=== PATIENT | female | born 1995 | race Caucasian/White ===

== ENCOUNTER 2017-05-08 13:11 | Day surgery (SDC) | payer OTHER, SELFPAY ==
[2017-05-08 14:30] VITALS: BP 112/59; TEMP 98.1
[2017-05-08 14:31] VITALS: BMI 21.5
--- NOTE | 2017-05-08 15:51 | ULT ---
OB ULTRASOUND 05/08/17 INDICATION: No care. History of reported abnormality on a prior ultrasound not available for comparison. FINDINGS: There is a live intrauterine gestation demonstrated with cardiac activity documented at 137 tato ts per minute. The fetus is in a vertex lie with the placenta located anteriorly. Amniotic fluid inde x is calculated at 10.5 cm. Evaluation of anatomy reveals intestinal contents beyond the expected confines of the abdominal wall without a discernible encapsulating sac, compatible with gastroschisis. The imaged cranial cont ents and spine are grossly unremarkable. The urinary bladder demonstrates a normal appearance. Three vessel umbilical cord is demonstrated, and is adjacent to the site of gastroschisis. The estim ated weight is 1336 grams. Estimated date of delivery by ultrasound is 29 weeks, 5 days placing estimated date of delivery by ultrasound at 07/19/17. On the basis of sonographic imaging, biparietal diameter corresponds to 30 weeks, 4 days. Head circumference 30 weeks, 2 days. Abdominal circumferen ce 28 weeks, 3 days and femoral length 29 weeks, 3 days. IMPRESSION: 1. Live intrauterine gestation. 2. Evidence of gastroschisis. Recommend high risk maternal medicine consultation. POS: [facility]
[2017-05-08 16:05] LABS: Hemoglobin 9.9 g/dL (12.0-16.0); Mean Corpuscular HGB CONC 33.3 g/dL (32.0-36.0); Mean Corpuscular Hemoglobin 27.9 pg (27.0-31.0); Mean Corpuscular Volume 83.6 fl (81.0-99.0); Platelet Count 308 thou/uL (130-400); RBC Distribution Width 13.2 % (11.5-14.5); Red Blood Cell (RBC) Count 3.54 mill/uL (4.20-5.40); White Blood Cell (WBC) Count 12.5 thou/uL (4.8-10.8)
[2017-05-08 16:44] LABS: HBSAg Index 0.76 S/CO (0-0.99); HIV (1/2) Antibody/Antigen Non-Reactive (NonReactive); HIV 1/2 INDEX 0.06 S/CO (<1.00); Hep B Surf Ag Non-Reactive S/CO (NonReactive)
--- NOTE | 2017-05-08 16:44 | PDOC.APC ---
Antepartum Consult NUNU MENA is a 21 year old female at [31 6/7] gestational weeks. is complicated by limited care and presumed gastroschisis. She presented to the [facility] for initial appointment at 26 weeks, found to be closer to 19 weeks on US. Initial clinic US concerning for gastroschisis, referred to [facility]. She did not follow up with [facility] as she lost her Medicaid coverage. She presented to L&D today with abdominal pain, found to not be in labor. I was asked by Dr. Guadalupe to discuss the diagnosis of gastroschisis with the mother. I introduced myself to the patient and the father of the baby. Mother explained to me that she knew her baby had its intestines outside the body and she planned on going to [place] for delivery. As simply as possible, I explained that gastroschisis is a defect in the abdominal wall which allows abdominal contents to extrude into the amniotic cavity. Depending on the size of the defect would determine whether the patient would have surgery right away or if a silo would be placed with serial reductions. I discussed the likely prolonged NICU stay which would last until the patient was able to take all feedings by mouth and gain weight. We discussed the need for likely IV nutrition. I explained that patients who have gastroschisis can be at risk for ischemic bowel, infection and fluid losses. They can have long-term problems with adhesions. I reiterated multiple times that she needed to be seen by a team as soon as possible to establish a plan of care and get a comprehensive evaluation of the well being. I provided her with the CDC handout on gastroschisis. I gave the [facility] team the contact information for the [facility] which has a 24 physician contact and will review initial imaging free of charge. Mother had no questions, was fidgety throughout our discussion and stated multiple times that she was ready to go home and be discharged. She was seen by the [facility] social service assistant while she was in L&D. Father had a few questions regarding the [facility] which I could not answer but I encouraged them to call today for further information. I relayed that I was readily available to answer any other questions they had.
[2017-05-08 16:45] LABS: Syphilis Antibody Nonreactive (Nonreactive); Syphilis Antibody Index 0.05 S/CO (<1.00 Non-Reactive)
--- NOTE | 2017-05-08 17:07 | PDOC.EVN ---
Event Note - Event Note Event Note: Discussed findings with patient. Informed patient that UA pending and would like for her to wait. Stated her grandmother has to go home and take medication. urine appears grossly normal. will d/c at this time and send antibiotic to pharmacy if needed. Final diagnosis. 1. TIUP at 31 weeks 2. U/S evidence of gastroschisis 3. anemia of - rx for iron and colace sent to [facility] in [place]. recommendations: iron supplementation. CM spoke with patient about how to get medicaid card tomorrow. Patient stated she would get medicaid card tomorrow and come to [facility] clinic for follow up and referral to [facility]. Patient understands she needs to deliver baby at hospital that can treat gastroschisis. <Jaciel Del Toro W - Last Filed: 05/08/17 17:03> Attending Addendum - Attending Addendum I personally evaluated the patient and discussed the management with Dr. Del Toro. I agree with the History, Examination, Assessment and Plan documented above with any addition or exceptions noted below. <Zohaib Guadalupe - Last Filed: 05/09/17 05:15>
[2017-05-08 17:15] LABS: Bilirubin Negative (Negative); Blood, Urine Negative (Negative); Clarity CLEAR (Clear); Glucose, Urine (Dipstick) Negative (Negative); Leukocyte Negative (Negative); Nitrite Negative (Negative); Protein, Urine (Dipstick) Negative (Neg-Trace); Specific Gravity, Urine 1.008 (1.002-1.036); Urobilinogen 0.2 mg/dL (0.2-1.0); pH, Urine 7.5 (5.0-9.0)
[2017-05-08 17:26] LABS: Amphetamine Not Detected (NotDetected); Barbiturates Screen Not Detected (NotDetected); Benzodiazepine Screen Not Detected (NotDetected); Cocaine Metabolite Screen Not Detected (NotDetected); Medtox Control Line Valid? VALID (VALID); Medtox Reader # READER 1; Methadone Not Detected (NotDetected); Methamphetamine Not Detected (NotDetected); Opiate Screen Not Detected (NotDetected); Oxycodone Screen Not Detected (NotDetected); Phencyclidine (PCP) Not Detected (NotDetected); THC/Cannabinoid Screen Not Detected (NotDetected); Tricyclic Screen Not Detected (NotDetected)
[2017-05-09 22:33] LABS: Chlamydia by PCR Not Detected (NotDetected); GC by PCR Not Detected (NotDetected)
== END 2017-05-08 17:05 | disposition home or self-care (01) ==
LOC: L&D/OP 13:11
PROVIDERS: ATTEND Obstetrics & Gynecology
DX: O99.89 Other specified diseases and conditions complicating pregnancy, childbirth and the puerperium (principal); R10.30 Lower abdominal pain, unspecified; O99.013 Anemia complicating pregnancy, third trimester; O99.333 Smoking (tobacco) complicating pregnancy, third trimester; F17.200 Nicotine dependence, unspecified, uncomplicated; Z3A.31 31 weeks gestation of pregnancy; Z79.899 Other long term (current) drug therapy
CPT/HCPCS: 36415; 76805; 80306; 81003; 85027; 86762; 86780; 86850; 86900; 86901; 87081; 87086; 87340; 87389; 87491; 87591; 99285

== ENCOUNTER 2017-05-21 09:47 | Day surgery (SDC) | payer OTHER ==
[2017-05-21 10:24] VITALS: BMI 27.8
--- NOTE | 2017-05-21 11:47 | PDOC.LDHP ---
Labor and Delivery H&P Chief complaint: other (Dark bleeding, Spotting) HPI: 21 yo @ 33.5 weeks dated by 19.6 wk sono comes in w/ cc of dark bleeding. OLIVIA is 07/04/17. Pt reports having light bleeding yesterday starting around noon just after sexual intercourse. Says the bleeding was bright yesterday and spotting. Not like periods. Reports this morning having spotting but saying that blood was dark. Denies any loss of fluid, vaginal discharge. Denies any itching or irritation. Denies contractions. Says baby is moving normal. Denies any urinary sx's, increased urinary frequency or pain with urination. Denies any pain with the bleeding. No other concerns or problems at this time. Current gestational age (weeks): 33 (5 days) Due date: 07/04/17 Dating criteria: second trimester ultrasound Grav: 3 Para: 1 OB History Details: Previous Miscarriage. 02/13/17 U/S in current noted Gastroschisis. 05/08/17 U/S showed weight less than 1%. Amphetamine and Cannabinoid positive on initial OB labs on 02/13/17. UDS on 05/08 here at [facility] was negative for all illicit drugs. Current complications: other (Gastroschisis) Abnormal US findings: Yes (Gastroschisis, Weight below 1%) Past Medical History: Tobacco use Current medications: pre-vinh vitamins Social history: tobacco use (Cigarrettes ocassionaly) - Physical Exam Vital signs reviewed and normal: yes General: NAD Heart: RRR Lungs: CTAB Abdomen: NTTP Extremeties: no edema FHT: category 1 [place] contractions every: none - OB Labs Blood type: O RH: positive Antibody Screen: negative HIV: negative RPR: negative HEPSAg: negative GBS: negative (05/08/17 test) Urine drug screen: negative (05/08/17 UDS) - Assessment 1)Postcoital Bleeding 2)Decreased Growth 3) w/ Gastroschisis noted on previous U/S 4) Hx of drug abuse -amphetamine and cannibinoid positive on outside UDS - Plan Plan: other -: -Bleeding likely related to intercourse yesterday. Speculum exam performed. Dry old blood noted on cervix. No sign of irritation or acute trauma noted. No lacerations noted. -Checking VP3, UA, and urine culture to check for any sign of infection that could be causing irritation and increasing bleeding -Checking BPP to ensure baby doing well. Category 1 strip on monitoring. FHR 135. No contractions noted -Pt has history of drug abuse on initial UDS at outside OB visit. Will recheck UDS at this time. 05/08/17 UDS was negative Getting growth and doppler to assess baby weight. On outside U/S weight noted less than 1st percentile. <Francisco Earl - Last Filed: 05/21/17 11:56> <Nguyen Gracia - Last Filed: 05/21/17 13:21> Allergies/Adverse Reactions: Allergies Allergy/AdvReac Type Severity Reaction Status Date / Time No Known Allergies Allergy Verified 03/11/15 21:34 Attending Addendum - Attending Addendum I personally evaluated the patient and discussed the management with Dr. Earl and Dr. Sr I agree with the History, Examination, Assessment and Plan documented above with any addition or exceptions noted below. 21 yo female at 33.5 wks by 19.6 wk sono here for evaluation of vaginal spotting. Patient presents for post coital spotting. Denies LOF, discharge, pelvic pain or contractions. +FM. has been complicated by tobacco use, polysubstance use, incomplete care, hx of STI, iron def anemia, gastroschisis, and growth restriction. Workup negative at present. Appears to be related to cervicitis. No contractions. NST reactive. BPP 11/28. UA and VP3 negative. Gc/CT along with ucx pending. Pos UDS today with marijuana and meth. Patient reports use of marijuana but denies meth use. Repeat growth stable at 1st percentile per Had[place]. UA dopplers elevated. Called [facility]. Has appointment on 05/22/17 at 0900. Education provided. Driving directions provided. New phone number obtained ---> [phone], Precautions discussed at length. Explained hospital team not adequately equipt for delivery. Discussed patient will require specialist care. Patient and FOB expressed understanding today of situation. Okay for d/c to home. Will call in AM to make sure patient on way to appointment. ABrayMD <Nguyen Garcia - Last Filed: 05/21/17 13:21>
[2017-05-21 11:56] LABS: Bilirubin Negative (Negative); Blood, Urine Large (Negative); Clarity CLOUDY (Clear); Glucose, Urine (Dipstick) Negative (Negative); Leukocyte Negative (Negative); Nitrite Negative (Negative); Protein, Urine (Dipstick) Negative (Neg-Trace); Specific Gravity, Urine 1.014 (1.002-1.036)
[2017-05-21 11:59] LABS: Bacteria/HPF 2+ HPF (None Seen); WBC/HPF 0-3 HPF (0-3)
[2017-05-21 12:08] LABS: Yeast-AUWi Flag 88.4 (0-25.0)
[2017-05-21 12:18] LABS: Hyaline Casts/LPF 0-3 HYALINE CAST LPF (0-3 Hyaline); Other Casts/LPF None Seen LPF (0-3 Hyaline); Yeast-All Forms None Seen HPF (None Seen)
[2017-05-21 12:20] LABS: Amphetamine Not Detected (NotDetected); Barbiturates Screen Not Detected (NotDetected); Benzodiazepine Screen Not Detected (NotDetected); Cocaine Metabolite Screen Not Detected (NotDetected); Medtox Control Line Valid? VALID (VALID); Medtox Reader # READER 1; Methadone Not Detected (NotDetected); Methamphetamine Detected (NotDetected); Opiate Screen Not Detected (NotDetected); Oxycodone Screen Not Detected (NotDetected); Phencyclidine (PCP) Not Detected (NotDetected); THC/Cannabinoid Screen Detected (NotDetected); Tricyclic Screen Not Detected (NotDetected)
--- NOTE | 2017-05-21 15:00 | ULT ---
OB ULTRASOUND AND NONSTRESS BIOPHYSICAL PROFILE: FINDINGS: Single intrauterine gestation with vertex presentation. There are heart tones with a rate of 1 55 b.p.m. biometry: BPD 8.03 cm, 32 weeks 2 days Head circumference 28.96 cm, 31 weeks 6 days Abdominal circumference 26.55 cm, 30 weeks 5 days Femur length 5.77 cm, 30 weeks 1 day Average age by sonography is 31 weeks 1 day. Estimated weight is 1634 gm +/- 242 gm. Umbilical artery: At the placenta peak systolic velocity is 86.6 cm/s. End-diastolic velocity is 27.3 cm/s. SD ratio is 3.17. In the mid portion of the umbilical artery, the peak systolic velocity is 101.4 cm/s. End- diastolic velocity is 28.5 cm/s. SD ratio is 3.56. At the cord insertion peak systolic velocity is 133.3 cm/s. End-diastolic velocity is 36.5 cm/s. SD ratio is 3.65. Amniotic fluid index is 12.3 cm. Nonstress biophysical profile: tone: 2. breathin. movement: 2. Amniotic fluid: 2. Total Score: 8 out of 8. Anterior placenta is noted. IMPRESSION: 1. Non-stress biophysical profile with total score of 8 out of 8. 2. Umbilical artery SD ratio is as detailed above. 3. Single intrauterine gestation with heart tones. POS: [facility]
[2017-05-21] MEDS ORDERED: FLU VACC QS2017-18 36 mo. & older 0.5 ML SYRINGE IM ONE (21:00)
[2017-05-22 22:57] LABS: Chlamydia by PCR Not Detected (NotDetected); GC by PCR Not Detected (NotDetected)
== END 2017-05-21 13:11 | disposition home or self-care (01) ==
LOC: L&D/OP 09:47
PROVIDERS: ATTEND Student in an Organized Health Care Education/Training Program
DX: O26.853 Spotting complicating pregnancy, third trimester (principal); O35.8XX0 Maternal care for other (suspected) fetal abnormality and damage, not applicable or unspecified; O99.333 Smoking (tobacco) complicating pregnancy, third trimester; F17.210 Nicotine dependence, cigarettes, uncomplicated; Z3A.33 33 weeks gestation of pregnancy; Z79.899 Other long term (current) drug therapy
CPT/HCPCS: 76805; 76819; 80306; 81003; 81015; 87086; 87480; 87491; 87510; 87591; 87660

== ENCOUNTER 2017-05-23 11:47 | Day surgery (SDC) | payer OTHER ==
[2017-05-23] MEDS ORDERED: Betamet Acet/Betamet Na Ph 30 MG/5 ML VIAL IM SCH (12:15)
--- NOTE | 2017-05-23 12:22 | PDOC.LDHP ---
Labor and Delivery H&P Chief complaint: other (Here to be triaged to MFM at [facility] ) Current gestational age (weeks): 34 (0 days) Due date: 07/04/17 Dating criteria: second trimester ultrasound Grav: 3 Para: 1 OB History Details: Previous msicarriage 02/13/17 U/S in current noted gastroschisis. 05/08/17 U/S showed weight less than 1%. Amphetamine and Cannabinoid positive on initial OB labs on 02/13/17. UDS on 05/08 negative. UDS on 05/21/17 was positive for meth and cannabinoids. 05/21/17 BPP 8/8. BRYAN 12.3 cm. OB U/S umbilical artery. At placenta peak systolic velocity is 86.6 cm/s. EDV is 27.3 cm/s. SD ratio is 3.17. In the mid portion of the umbilical artery, the peak systolic velocity is 101.4 cm/s. EDV is 28.5 cm/s. SD ratio is 3.56. At the cord insertion peak systolic velocity is 133.3 cm/s. EDV is 36.5cm/s. SD ratio is 3.65 cm/s EFW is 1634gm Current complications: other Abnormal US findings: Yes (Gastroschisis, weight below 1%, SD ratio abnormal) Past Medical History: N/A Current medications: pre-vinh vitamins Previous surgical history: none Social history: tobacco use (cigarrettes occasionaly), drug use (marijuana occasionally, denied meth even though positive previously) - Physical Exam Vital signs reviewed and normal: yes General: NAD Heart: RRR Lungs: CTAB Abdomen: NTTP Extremeties: no edema FHT: category 1, variability present - OB Labs Blood type: O RH: positive Antibody Screen: negative HIV: negative RPR: negative HEPSAg: negative GBS: negative Urine drug screen: positive (Positive for marijuna, meth on 05/21. Initial on was marijuana and amphetamines) Additional Labs: Gonorrhea and Chlamydia negative from test on 05/21/16 - Assessment 1)Decreased Growth 2) w/ gastroschisis noted on u/s 3) Current Drug abuse -marijuana, meth, amphetamines - Plan Plan: admit to L&D -: 21 yo @ 34 weeks by 19.6 week sono is here for triage to higher level care. Pt had growth weight at 1% and increased UA dopplers. Baby was identified to have gastroschisis on 19.6 week U/S. We have been trying to get patient to [facility] specialist ever since we identified the gastroschisis on her initial US. Pt has been noncompliant on visits and never made an appointment with [facility] doctors. She came in 2 days ago and we found the findings on BPP/NST and US as noted above. We tried setting up a MFM appointment for Sunday. We called the patient and she ended up not going. Pt also has a diagnosis of Drug abuse. 2 days ago her UDS was positive for marijuana and methamphetamine. With pt infants low weight, increased UA dopplers and multiple positive UDS patient desperately needs to be seen and assessed by a [facility] specialist. We have had conversation with Sarah Brown MD and she has agreed to see and assess this patient at [facility]. -We are checking 1 hr gtt. We will also give her dose of betamethasone as it is anticipated patient will be delivering soon as baby is at risk with all its findings. -We will check her GBS, previous outside GBS was negative. FHT reactive. FHR 145. Multiple accelerations seen on heart tones. No ctx seen on monitor. Cat 1 strip. <Francisco Earl - Last Filed: 05/23/17 12:34> <Nguyen Garcia - Last Filed: 05/23/17 13:20> Allergies/Adverse Reactions: Allergies Allergy/AdvReac Type Severity Reaction Status Date / Time No Known Allergies Allergy Verified 03/11/15 21:34 Attending Addendum - Attending Addendum I personally evaluated the patient and discussed the management with Dr. Earl and Dr. Sr I agree with the History, Examination, Assessment and Plan documented above with any addition or exceptions noted below. 21 yo female at 34.0 wks by 19.6 wk sono here for medical transfer due to need for anticipated delivery. 1. sIUP: IOB labs reviewed. Gc/CT negative. NILM 02/13/17. Anatomy significant for gastroschisis. 1 hour gtt done today. Results pending at time of documentation. Flu given. No Tdap. GBS negative on 05/08/17. 2. Gastroschisis: Transfering to higher level of care for delivery. 3. Severe FGR: 1st percentile per Haddlock. EFW = 1634g on 05/21/17. S/D ratio = 3.56. Discussed case on Sunday with group at outside facility. Did not warrant imediate transfer. F/U OV scheduled for following morning. Patient did not make OV. Was seen in our office today. Case discussed with providers in [place]. Care accepted. BMZ 12 mg IM on 05/23/17. BPP 8/8 on 05/21/17. NST reactive today and on 05/21/17. 4. Polysubstance abuse: Marijuana, meth, amphetamines, tobacco use during . Marijuana positive today on UDS in clinic. Marijuana and meth positive on 05/21/17. 5. Iron def anemia: On iron supplementation. 6. Post coital bleeding: On 05/21/17. Infectious workup negative. Cervicitis on exam. 7. Incomplete/Poor care: Has only made 2 OVs. 8. Bipolar disorder: Not on medication. Has been in denial of complications. Has little understanding and concern for issues. Left office during visit today due to stress of news and need for transfer. Psych at office visit completed evaluation. Discussed coping mechanisms with patient. Psych ruled out significant self harm, SI, and HI today. Dispo: Will transfer to [place]. Martha <Nguyen Garcia - Last Filed: 05/23/17 13:20>
[2017-05-23 13:25] LABS: Glucose 74 mg/dL (70-105)
[2017-05-23 13:48] LABS: #Basophils 0.1 thou/uL (0.0-0.2); #Eosinphils 0.1 thou/uL (0.0-0.7); #Lymphocytes 2.9 thou/uL (1.20-3.40); #Monocytes 1.2 thou/uL (0.11-0.59); #Neutrophils 6.2 thou/uL (1.40-6.50); %Basophils 0.7 % (0.0-1.0); %Eosinophils 1.4 % (0.0-10.0); %Lymphocytes 27.4 % (21.0-51.0); %Monocytes 11.3 % (0.0-10.0); %Neutrophils 59.3 % (42.0-75.0); Hemoglobin 10.1 g/dL (12.0-16.0); Mean Corpuscular HGB CONC 32.3 g/dL (32.0-36.0); Mean Corpuscular Hemoglobin 26.9 pg (27.0-31.0); Mean Corpuscular Volume 83.3 fl (81.0-99.0); Platelet Count 357 thou/uL (130-400); RBC Distribution Width 13.7 % (11.5-14.5); Red Blood Cell (RBC) Count 3.74 mill/uL (4.20-5.40); White Blood Cell (WBC) Count 10.4 thou/uL (4.8-10.8)
[2017-05-23 13:54] LABS: ALT (SGPT) 11 U/L (8-55); AST (SGOT) 29 U/L (5-34); Albumin 3.4 g/dL (3.5-5.0); Alkaline Phosphatase 191 U/L (40-150); Anion Gap 16 mmol/L (10-20); BUN (Urea Nitrogen) 4 mg/dL (7.0-18.7); Bilirubin, Total 0.2 mg/dL (0.2-1.2); Calc. Creatinine Clearance 0 mL/min (70-130); Calcium 8.2 mg/dL (7.8-10.44); Carbon Dioxide 18 mmol/L (22-29); Chloride 105 mmol/L (98-107); Estimated GFR-MDRD Greater than 90; Globulin 3.7 g/dL (2.4-3.5); Glucose 73 mg/dL (70-105); Potassium 4.8 mmol/L (3.5-5.1); Protein, Total 7.1 g/dL (6.0-8.3); Sodium 134 mmol/L (136-145)
== END 2017-05-23 14:53 | disposition short-term general hospital (02) ==
LOC: L&D/OP 11:47
PROVIDERS: ATTEND Student in an Organized Health Care Education/Training Program
DX: O36.5930 Maternal care for other known or suspected poor fetal growth, third trimester, not applicable or unspecified (principal); O35.8XX0 Maternal care for other (suspected) fetal abnormality and damage, not applicable or unspecified; O99.323 Drug use complicating pregnancy, third trimester; F12.10 Cannabis abuse, uncomplicated; F15.10 Other stimulant abuse, uncomplicated; O99.333 Smoking (tobacco) complicating pregnancy, third trimester; F17.210 Nicotine dependence, cigarettes, uncomplicated; Z79.899 Other long term (current) drug therapy; Z3A.34 34 weeks gestation of pregnancy; Z87.59 Personal history of other complications of pregnancy, childbirth and the puerperium
CPT/HCPCS: 82947; 85025; 96372; 99283; J0702

== ENCOUNTER 2018-10-19 14:05 | Emergency (ER) | payer SELFPAY ==
--- NOTE | 2018-10-19 15:23 | ULT ---
GALLBLADDER ULTRASOUND: Date: 10/19/18 HISTORY: Right upper quadrant pain. COMPARISON: None. TECHNIQUE: Utilizing a multihertz transducer, sonographic imaging of the right upper quadrant was performed in t he longitudinal and transverse plane. FINDINGS: Limited evaluation due to artifact. Pancreas is obscured. Suboptimal evaluation of the hepatic parenchyma. The possibility of hepatic masses could easily be ob scured. No definite sonographic evidence of cholelithiasis, gallbladder wall thickening, or pericholecystic f luid. Negative Harris's sign is reported. Common bile duct diameter is 0.2 cm. Right kidney has a normal cortical echotexture. No hydronephrosis. Right kidney measures 5.7 x 4.8 x 10.5 cm. IMPRESSION: 1. Limited evaluation. No definite sonographic evidence of cholelithiasis or cholecystitis. 2. Suboptimal evaluation of the liver. POS: [facility]
== END 2018-10-19 17:50 | disposition home or self-care (01) ==
LOC: ERS 14:05
DX: O99.89 Other specified diseases and conditions complicating pregnancy, childbirth and the puerperium (principal); R10.11 Right upper quadrant pain; O99.341 Other mental disorders complicating pregnancy, first trimester; F31.9 Bipolar disorder, unspecified; O99.331 Smoking (tobacco) complicating pregnancy, first trimester; F17.210 Nicotine dependence, cigarettes, uncomplicated
CPT/HCPCS: 76705

== ENCOUNTER 2019-05-13 17:35 | Inpatient (IN) | payer OTHER ==
[~2019-05-13 17:35] MED LIST: Bupivacaine/Epinephrine 0.25% 30 ML VIAL ONE
[2019-05-13 18:04] VITALS: BMI 28.1
[2019-05-13] MEDS ORDERED: Zolpidem Tartrate 5 MG TAB PO PRN (19:59)
[2019-05-13] MEDS ORDERED: Ibuprofen 800 MG TAB PO PRN (19:59)
[2019-05-13] MEDS ORDERED: Promethazine HCl 25 MG/ML VIAL IM PRN (19:59)
[2019-05-13] MEDS ORDERED: Lidocaine 1% (PF) 30 ML VIAL SC PRN (19:59)
[2019-05-13] MEDS ORDERED: hydrALAZINE 20 MG/ML VIAL SLOW IVP PRN (19:59)
[2019-05-13] MEDS ORDERED: Ondansetron PF 4 MG/2 ML Vial IVP PRN (19:59)
[2019-05-13] MEDS ORDERED: HYDROcodone/Acetaminophen 5/325 mg Tablet PO PRN ×2 (19:59)
[2019-05-13 20:23] LABS: Hemoglobin 10.5 g/dL (12.0-16.0); Mean Corpuscular HGB CONC 33.3 g/dL (32.0-36.0); Mean Corpuscular Hemoglobin 27.3 pg (27.0-31.0); Mean Corpuscular Volume 82.2 fL (78.0-98.0); Mean Platelet Volume 8.1 fL (7.4-10.4); Platelet Count 296 thou/uL (130-400); RBC Distribution Width 12.1 % (11.5-14.5); Red Blood Cell (RBC) Count 3.84 mill/uL (4.20-5.40); White Blood Cell (WBC) Count 10.3 thou/uL (4.8-10.8)
[2019-05-13] MEDS: NS w/ Oxytocin 10 units 500 ML IV SCH (21:00)
[2019-05-13] MEDS ORDERED: Misoprostol 100 MCG TAB VAG SCH (21:00)
[2019-05-13] MEDS ORDERED: Lactated Ringer's 1,000 ML IV SCH (21:00)
[2019-05-13 21:02] LABS: Syphilis Antibody Nonreactive (Nonreactive); Syphilis Antibody Index 0.05 S/CO (<1.00 Non-Reactive)
[2019-05-13] MEDS: Lactated Ringer's 1,000 ML IV SCH (22:55)
[2019-05-13 23:01] LABS: HBSAg Index 0.17 S/CO (0-0.99); Hep B Surf Ag Non-Reactive S/CO (NonReactive)
[2019-05-14] MEDS: Butorphanol Tartrate 1 MG/ML VIAL SLOW IVP PRN ×2 (00:05→02:26)
[2019-05-14] MEDS: Misoprostol 100 MCG TAB VAG SCH ×4 (00:11→12:13)
[2019-05-14] MEDS ORDERED: Fentanyl 4 mcg/Bup 0.1% Cadd 100 ML ONE (03:35)
[2019-05-14] MEDS ORDERED: Ondansetron PF 4 MG/2 ML Vial IVP PRN ×2 (05:07→11:59)
[2019-05-14] MEDS ORDERED: Naloxone HCl 0.4 mg/ml Vial IVP PRN ×2 (05:07)
[2019-05-14] MEDS ORDERED: diphenhydrAMINE 50 MG/ML VIAL IVP PRN (05:07)
[2019-05-14] MEDS ORDERED: Acetaminophen 325 MG TAB PO PRN (05:07)
[2019-05-14] MEDS ORDERED: ePHEDrine/0.9% NaCl/PF SYRINGE 50 mg/10 ml SLOW IVP PRN (05:07)
[2019-05-14] MEDS ORDERED: Promethazine HCl 25 MG/ML VIAL IM PRN ×2 (05:07→11:59)
[2019-05-14] MEDS ORDERED: Lactated Ringer's 500 ML IV PRN (05:07)
[2019-05-14] MEDS ORDERED: Fentanyl 4 mcg/Bupivacaine 0.1% Cassette 100 ML EPIDURAL SCH (05:15)
[2019-05-14] MEDS ORDERED: Communication Order-Pharmacy FS SCH (05:15)
[2019-05-14] MEDS: NS w/ Oxytocin 10 units 500 ML IV SCH (05:25)
[2019-05-14] MEDS: Lactated Ringer's 1,000 ML IV SCH (08:04)
[2019-05-14] MEDS: NS / Oxytocin 40 units/1000ml 1,000 ML IV PRN ×2 (08:30→10:14)
[2019-05-14] MEDS ORDERED: hydrALAZINE 20 MG/ML VIAL SLOW IVP PRN (11:59)
[2019-05-14] MEDS ORDERED: Zolpidem Tartrate 5 MG TAB PO PRN (11:59)
[2019-05-14] MEDS ORDERED: Benzocaine-Menthol 82.5 ML CAN TOP PRN (11:59)
[2019-05-14] MEDS ORDERED: diphenhydrAMINE 25 MG CAP PO PRN (11:59)
[2019-05-14] MEDS ORDERED: Adacel (T-DAP) 0.5 ML SYRINGE IM ONE (11:59)
[2019-05-14] MEDS ORDERED: Milk Of Magnesia 30 ML UDCUP PO PRN (11:59)
[2019-05-14] MEDS ORDERED: Preparation H Ointment 28 GM TUBE PR PRN (11:59)
[2019-05-14] MEDS ORDERED: NS / Oxytocin 40 units/1000ml 1,000 ML IV SCH (11:59)
[2019-05-14] MEDS ORDERED: Lanolin Ointment 7 GM TUBE TOP PRN (11:59)
[2019-05-14] MEDS ORDERED: HYDROcodone/Acetaminophen 5/325 mg Tablet PO PRN (11:59)
[2019-05-14] MEDS ORDERED: Bisacodyl 10 MG SUPP PR PRN (11:59)
[2019-05-14] MEDS: Prenatal Vitamin 1 TAB PO SCH (12:13)
[2019-05-14] MEDS: Ibuprofen 800 MG TAB PO SCH ×2 (13:46→22:00)
[2019-05-14] MEDS: HYDROcodone/Acetaminophen 5/325 mg Tablet PO PRN ×2 (17:42→22:07)
[2019-05-14] MEDS: Docusate Calcium (SURFAK) 240 MG CAP PO SCH (22:00)
[2019-05-15] MEDS: Ibuprofen 800 MG TAB PO SCH ×2 (06:15→13:44)
[2019-05-15] MEDS: Docusate Calcium (SURFAK) 240 MG CAP PO SCH (08:13)
[2019-05-15] MEDS: HYDROcodone/Acetaminophen 5/325 mg Tablet PO PRN ×3 (08:13→16:44)
[2019-05-15] MEDS: Prenatal Vitamin 1 TAB PO SCH (08:13)
[2019-05-15 09:11] VITALS: BP 94/52; TEMP 98.2
--- NOTE | 2019-05-15 09:28 | DIS ---
DATE OF ADMISSION: 05/13/2019 DATE OF DISCHARGE: 05/15/2019 TIME OF SERVICE: 08:15. HISTORY OF PRESENT ILLNESS: The patient is resting comfortably, status post . PHYSICAL EXAMINATION: VITAL SIGNS: Temperature 98.1, pulse 61, respirations 16, blood pressure 95/50. T-max 98.1. LUNGS: Clear to auscultation bilaterally. HEART: Regular rhythm. ABDOMEN: Soft, nontender. Fundus firm, nontender. Normal lochia. EXTREMITIES: No clubbing, cyanosis, or edema. Infant weighed 5 pounds 15 ounces, 9 and 9 Apgars and is eating well. Apparently, patient has no concerns and desires discharge this p.m. IMPRESSION: day #1 status post induction of labor at 38 weeks for small for gestational age infant. PLAN: Discharge home this p.m. Routine followup in 6 weeks with at [facility] [place] with Dr. Gamboa. Job ID: [id number]
[2019-05-15] MEDS ORDERED: Measles/Mumps/Rubella 10 MCG/0.5 ML VIAL SC ONE (11:00)
== END 2019-05-15 18:05 | disposition home or self-care (01) | DRG 807 ==
LOC: L&D 17:35 → 3SW 05-14 11:27
PROVIDERS: ADMIT Obstetrics & Gynecology; ATTEND Obstetrics & Gynecology
PROC: 3E033VJ Introduction of Other Hormone into Peripheral Vein, Percutaneous Approach (ICD-10-PCS; 2019-05-13)
PROC: 3E0P7VZ Introduction of Hormone into Female Reproductive, Via Natural or Artificial Opening (ICD-10-PCS; 2019-05-13)
PROC: 3E0234Z Introduction of Serum, Toxoid and Vaccine into Muscle, Percutaneous Approach (ICD-10-PCS; 2019-05-13)
PROC: 10E0XZZ Delivery of Products of Conception, External Approach (ICD-10-PCS; principal; 2019-05-14)
DX: O36.5930 Maternal care for other known or suspected poor fetal growth, third trimester, not applicable or unspecified (principal); Z37.0 Single live birth; Z3A.38 38 weeks gestation of pregnancy; Z23 Encounter for immunization
CPT/HCPCS: 36415; 51702; 85027; 86780; 86850; 86900; 86901; 87340; 90707; J0595; J2405; J2590

== ENCOUNTER 2024-12-23 15:06 | Emergency (ER) | payer OTHER, SELFPAY ==
[2024-12-23 16:55] LABS: #Basophils 0.03 10x3/uL (0.0-0.2); #Eosinophils 0.10 10x3/uL (0.0-0.7); #Monocytes 0.88 10x3/uL (0.11-0.59); #Neutrophils 4.73 10x3/uL (1.40-6.50); %Basophils 0.4 % (0.0-1.0); %Eosinophils 1.2 % (0.0-10.0); %Lymphocytes 32.5 % (21.0-51.0); %Monocytes 10.3 % (0.0-10.0); %Neutrophils 55.4 % (42.0-75.0); Hematocrit 35.6 % (36.0-47.0); Hemoglobin 11.4 g/dL (12.0-16.0); Mean Corpuscular Hemoglobin 27.7 pg (27.0-31.0); Mean Corpuscular Volume 86.4 fL (78.0-98.0); Platelet Count 330 10x3/uL (130-400); Red Blood Cell (RBC) Count 4.12 mill/uL (4.20-5.40); White Blood Cell (WBC) Count 8.53 10x3/uL (4.8-10.8)
[2024-12-23 16:58] LABS: Bacteria/HPF None Seen HPF (None Seen); CAUTI Indications for Culture Dysuria,urgency,freq; Glucose, Urine (Dipstick) Normal (Negative); Leukocyte Negative Leu/uL (Negative); Protein, Urine (Dipstick) Negative (Neg-Trace); RBC/HPF 0-3 HPF (0-3); Specific Gravity, Urine 1.019 (1.002-1.036); WBC/HPF 0-3 HPF (0-3)
[2024-12-23 17:03] LABS: Urine Culture Reflex No No
[2024-12-23 17:14] LABS: ALT (SGPT) 9 U/L (Less than 34); AST (SGOT) 18 U/L (11-34); Albumin 4.0 g/dL (3.1-4.5); Alkaline Phosphatase 57 U/L (40-110); Anion Gap 13 mmol/L (10-20); BUN (Urea Nitrogen) 8 mg/dL (7.0-18.7); Bilirubin, Total 0.1 mg/dL (0.3-1.2); Calc. Creatinine Clearance 0 mL/min (70-130); Calcium 9.2 mg/dL (7.8-10.44); Carbon Dioxide 21 mmol/L (22-29); Chloride 106 mmol/L (98-107); Globulin 3.1 g/dL (2.4-3.5); Glucose 81 mg/dL (70-105); Potassium 3.7 mmol/L (3.5-5.1); Sodium 136 mmol/L (136-145)
== END 2024-12-23 18:15 | disposition home or self-care (01) ==
LOC: ERS 15:06
DX: O99.891 Other specified diseases and conditions complicating pregnancy (principal); R10.9 Unspecified abdominal pain; F17.290 Nicotine dependence, other tobacco product, uncomplicated; Z3A.01 Less than 8 weeks gestation of pregnancy
CPT/HCPCS: 36415; 76801; 80053; 81001; 84702; 85025